=== PATIENT | male | born 1955 | race Caucasian/White ===

== ENCOUNTER → 2018-05-28 | Outpatient (CLI) | payer OTHER, MEDICARE ==
--- NOTE | 2018-06-04 09:42 | REP ---
Digital diagnostic bilateral mammography with CAD: History: Left-sided gynecomastia. Increased sensitivity and tenderness. Comparison is made with a prior bilateral breast imaging from January 15, 2018 showing evidence of left-sided gynecomastia. Findings: CC and MLO views of each breast demonstrate a subareolar flame-shaped area of breast parenchymal opacity on the left consistent with gynecomastia. This is essentially unchanged from the comparison study of January 15, 2018. No mass-like features or spiculation is seen. Magnified focal spot compression true ML view has been obtained and this shows no additional abnormality. Repeat ultrasound had been ordered with the patient was going to schedule this at a later date. Impression: Stable BIRADS category II benign findings. Findings consistent with unilateral gynecomastia left breast unchanged. This mammogram was interpreted with the aid of an FDA-approved computer-aided detection system. The patient states she had a clinical breast exam in April 2018 The patient letter being requested is male patient letter M2. Electronically Signed by Zeb Reyes MD 06/04/2018 11:27 A
== END ==
LOC: M RAD 09:47
PROVIDERS: ATTEND Surgery
DX: N62 Hypertrophy of breast (principal)

== ENCOUNTER → 2018-06-03 | Outpatient (CLI) | payer OTHER ==
--- NOTE | 2018-06-03 15:22 | REP ---
LEFT BREAST ULTRASOUND: Real-time sonographic evaluation of the left breast performed. Moderate fibroglandular tissue is seen in the left retroareolar region with ill-defined margins. No discrete mass is seen in any portion of the left breast. IMPRESSION: ACR 2 benign. Left gynecomastia with fibroglandular tissue in the retroareolar region. Electronically Signed by Angel Metzger MD 06/04/2018 10:29 A
== END ==
LOC: M RAD 13:07
PROVIDERS: ATTEND Physician Assistant Medical
DX: N62 Hypertrophy of breast (principal)